=== PATIENT | male | born 1995 | race Caucasian/White ===

== ENCOUNTER 2020-07-12 05:11 | Inpatient (IN) ==
[2020-07-12] MEDS ORDERED: traZODone 50 MG TABLET PO PRN (07:03)
[2020-07-12] MEDS ORDERED: Acetaminophen 325 MG TABLET PO PRN (07:03)
[2020-07-12] MEDS ORDERED: *HR* LORazepam 1 MG TABLET PO PRN (07:03)
[2020-07-12] MEDS ORDERED: Haloperidol Lactate 5 MG/ML VIAL IM PRN (07:03)
[2020-07-12] MEDS ORDERED: haloperidoL 5 MG TABLET PO PRN (07:03)
[2020-07-12] MEDS ORDERED: *HR* LORazepam 2 MG/ML VIAL IM PRN (07:03)
[2020-07-12] MEDS ORDERED: Mag Hydrox/Al Hydrox/Simeth 30 ML UDC PO PRN (07:03)
[2020-07-12] MEDS ORDERED: hydrOXYzine pamoate 25 MG CAPSULE PO PRN (07:03)
[2020-07-12] MEDS ORDERED: MOM Conc 10 ML UD.LIQ PO PRN (07:03)
[2020-07-13 09:26] VITALS: BP 124/81
== END 2020-07-13 12:35 | disposition home or self-care (01) | DRG 885 ==
LOC: EMEROOARM 05:11 → 1ANU 06:58
PROVIDERS: ADMIT Psychiatry & Neurology Psychiatry; ATTEND Psychiatry & Neurology Psychiatry